=== PATIENT | male | born 1950 | race Caucasian/White ===

== ENCOUNTER 2024-09-21 09:58 | Day surgery (SDC) | payer MEDICARE, BC ==
[~2024-09-21 09:58] MED LIST: Midazolam 1 MG/ML 2 ML SDV ONE; Ondansetron 4 MG/2 ML SDV ONE; Propofol 200 MG/20 ML SDV ONE; Sodium Chloride 0.9% 10 ML Syringe FLUSH PRN; Sodium Chloride 0.9% 10 ML Syringe FLUSH SCH; ceFAZolin 2 GM Vial ONE; fentaNYL 100 MCG/2 ML SDV ONE
[2024-09-21] MEDS ORDERED: Lidocaine 1% 4 ML ONE (10:33)
[2024-09-21] MEDS ORDERED: Lidocaine 1% PF 2 ML SDV ONE ×2 (10:33)
[2024-09-21] MEDS: Lactated Ringers 1,000 ML IV SCH (10:45)
[2024-09-21] MEDS ORDERED: dexmedeTOMIDine HCl 200 MCG/2 ML SDV ONE (11:16)
[2024-09-21] MEDS ORDERED: Propofol 200 MG/20 ML SDV ONE (11:22)
[2024-09-21] MEDS: EPINEPHrine 1 MG/ML SDV ONE (11:31)
[2024-09-21] MEDS: Bupivacaine 0.5% 30 ML SDV ONE (11:31)
[2024-09-21] MEDS ORDERED: fentaNYL 100 MCG/2 ML SDV IVPUSH PRN (12:22)
[2024-09-21] MEDS ORDERED: HYDROmorphone 0.5 MG/0.5 ML Syringe IVPUSH PRN (12:22)
[2024-09-21] MEDS ORDERED: Ondansetron 4 MG/2 ML SDV IVPUSH PRN (12:22)
[2024-09-21] MEDS: oxyCODONE 5 MG Tab PO PRN (13:50)
== END 2024-09-21 14:06 | disposition home or self-care (01) ==
LOC: JD.SDS 09:58
PROVIDERS: ATTEND Surgery
DX: K40.90 Unilateral inguinal hernia, without obstruction or gangrene, not specified as recurrent (principal); J44.9 Chronic obstructive pulmonary disease, unspecified; J45.40 Moderate persistent asthma, uncomplicated; I25.10 Atherosclerotic heart disease of native coronary artery without angina pectoris; E78.5 Hyperlipidemia, unspecified; Z87.891 Personal history of nicotine dependence; Z79.899 Other long term (current) drug therapy
CPT/HCPCS: 49505; C1781; J0171; J0665; J0690; J2250; J2405; J2704; J3010; J7120; A9270-GY; J3490